=== PATIENT | female | born 1945 | race Caucasian/White ===

== ENCOUNTER 2017-05-16 07:30 | Outpatient (CLI) | payer MEDICARE ==
--- NOTE | 2017-05-16 09:33 | ULT ---
ABDOMINAL ULTRASOUND: History: Previous cholecystectomy. Mid abdominal pain. Comparison: None. Technique: Utilizing a multihertz transducer, sonographic imaging of the abdomen was performed in th e longitudinal and transverse plane. FINDINGS: Head and proximal pancreatic body have a normal echotexture. The rest of the pancreas is obscured. V isualized aorta is unremarkable. IVC is not well demonstrated. Main portal vein is patent. Appropriate direction of flow. Hepatic parenchyma has a normal echotextu re. No hepatic masses or intrahepatic biliary dilatation. Contour of the hepatic margin is maintaine d. Right hepatic lobe measures 15.3 cm. Gallbladder is surgically absent. Common bile duct is 0.4 cm. Kidneys have a normal cortical echotexture. Bilaterally, no hydronephrosis. The right kidney measure s 4.6 x 9.7 x 4.7 cm. Left kidney measures 9.7 x 4.8 x 4.9 cm. Echogenic focus in the midpole cortex may represent a calculus. No obstruction. Spleen measures 9 cm in maximal dimension. IMPRESSION: No acute abnormality in the abdomen. POS: [facility]
--- NOTE | 2017-05-16 10:38 | RAD ---
BARIUM SWALLOW ESOPHOGRAM: History: Choking, dysphagia. Comparison: None. FINDINGS: Single view chest: Crimper Operator chest radiograph demonstrates a normal cardiac silhouette. The pulmonary vessels and hilum are normal. Costophrenic angles are clear. No masses or consolidation. No pneumothorax or osseous abnor malities. Patient was administered effervescence crystals followed by thick barium, thin barium, and a standar d 13 mm tablet. The cervical and thoracic esophagus have an overall normal course and caliber. There is no mucosal a bnormality. A small hiatal hernia is noted, without evidence of reflux during intermittent fluorosco py. The 13 mm barium tablet passed without difficulty. IMPRESSION: 1. No evidence of obstruction. 2. Small hiatal hernia without evidence of reflux during intermittent fluoroscopy. 3. No mucosal abnormality. POS: [facility]
== END 2017-05-16 07:31 | disposition home or self-care (01) ==
LOC: ULT 07:30
PROVIDERS: ATTEND Internal Medicine Gastroenterology
DX: R13.10 Dysphagia, unspecified (principal); R10.84 Generalized abdominal pain; R10.11 Right upper quadrant pain; R09.89 Other specified symptoms and signs involving the circulatory and respiratory systems; K44.9 Diaphragmatic hernia without obstruction or gangrene
CPT/HCPCS: 74220; 76700

== ENCOUNTER 2017-07-20 15:44 | Outpatient (CLI) | payer MEDICARE | END 2017-07-20 15:45 | disposition home or self-care (01) | LOC: BICRAD 15:44 | PROVIDERS: ATTEND Anesthesiology Pain Medicine | DX: M25.551 Pain in right hip (principal); M16.11 Unilateral primary osteoarthritis, right hip ==

== ENCOUNTER 2017-10-17 12:29 | Outpatient (CLI) | payer MEDICARE ==
[2017-10-17 14:12] LABS: Hemoglobin 13.5 g/dL (12.0-16.0); Mean Corpuscular HGB CONC 32.8 g/dL (32.0-36.0); Mean Corpuscular Hemoglobin 31.9 pg (27.0-31.0); Mean Corpuscular Volume 97.2 fl (81.0-99.0); Mean Platelet Volume 7.4 fL (7.4-10.4); Platelet Count 290 thou/uL (130-400); Red Blood Cell (RBC) Count 4.22 mill/uL (4.20-5.40); White Blood Cell (WBC) Count 8.5 thou/uL (4.8-10.8)
[2017-10-17 14:17] LABS: Bilirubin Negative (Negative); Blood, Urine Negative (Negative); Clarity CLEAR (Clear); Glucose, Urine (Dipstick) Negative (Negative); Leukocyte Negative (Negative); Nitrite Negative (Negative); PTT 29.1 SEC (22.9-36.1); Protein, Urine (Dipstick) Negative (Neg-Trace); Prothrombin Time 13.4 SEC (12.0-14.7); Specific Gravity, Urine 1.008 (1.002-1.036); Urobilinogen 0.2 mg/dL (0.2-1.0); pH, Urine 6.5 (5.0-9.0)
[2017-10-17 14:24] LABS: Bacteria/HPF Rare-Few HPF (None Seen); Hyaline Casts/LPF 0-3 HYALINE CAST LPF (0-3 Hyaline); RBC/HPF 0-3 HPF (0-3); Squamous Epithelial 0-3 HPF (0-3); WBC/HPF None Seen HPF (0-3)
[2017-10-17 14:41] LABS: Anion Gap 11 mmol/L (10-20); BUN (Urea Nitrogen) 10 mg/dL (9.8-20.1); Calc. Creatinine Clearance 0 mL/min (70-130); Calcium 9.5 mg/dL (7.8-10.44); Carbon Dioxide 26 mmol/L (23-31); Chloride 103 mmol/L (98-107); Estimated GFR-MDRD 75; Glucose 98 mg/dL (80-115); Potassium 3.9 mmol/L (3.5-5.1); Sodium 136 mmol/L (136-145)
== END 2017-10-17 12:30 | disposition home or self-care (01) ==
LOC: LABBT 12:29
PROVIDERS: ATTEND Orthopaedic Surgery
DX: Z01.818 Encounter for other preprocedural examination (principal); M16.11 Unilateral primary osteoarthritis, right hip
CPT/HCPCS: 80048; 81001; 85027; 85610; 85730; 87081; 87086; 93005; 93010

== ENCOUNTER 2017-10-18 09:00 | Inpatient (IN) | payer MEDICARE ==
--- NOTE | 2017-10-26 10:01 | HP ---
HISTORY OF PRESENT ILLNESS: The patient is a 71-year-old female who has a 6 month history of progres sive pain in the right hip without injury. She describes groin pain which is worse with activities a nd has persisted despite rest, restriction of activities, anti-inflammatory medications, and a cortis one injection in her hip. The pain is now interfering with day-to-day activities. PAST MEDICAL HISTORY: The patient has had left total hip replacement in 01/2014 with good results. She has had chronic back problems and is followed by Dr. Nieves and has received injections. Th is had no effect on her hip pains. The patient has a history of thyroid replacement, previous hyster ectomy, and breast lumpectomy. CURRENT MEDICATIONS: Include thyroid, Etodolac, multivitamins, tramadol. ALLERGIES: She is allergic to GABAPENTIN and DAPTOMYCIN. FAMILY HISTORY/SOCIAL HISTORY/REVIEW OF SYSTEMS: Essentially unremarkable. Patient currently lives by herself. She has nonworking family members that can help her in the immediate postoperative recov merced. PHYSICAL EXAMINATION: GENERAL: Reveals a healthy female. HEENT: Unremarkable. NECK: Supple. CHEST: Clear. HEART: Regular rate and rhythm. ABDOMEN: Soft. PELVIC/RECTAL/BREAST: Exams are deferred. EXTREMITIES: Pertinent findings related to her hip. There is tenderness in the anterior and posteri or hip. There is a right antalgic gait. There is limitation of her hip motion and groin pain with i nternal rotation of the hip which reproduces her pain. Her leg lengths are equal. Neurovascular exa m is intact. LABORATORY AND X-RAY FINDINGS: X-rays of the hip reveal moderately severe DJD of the right hip. IMPRESSION: 1. Degenerative joint disease, right hip. 2. Status post left total hip replacement. 3. History of thyroid replacement. PLAN: Right total hip replacement. The nature of the surgery, length of recovery, and potential com plications such as infection, loss of motion, incomplete relief, leg length discrepancy, possible tra nsfusion, neurovascular injury and need for revision have been discussed in detail. The patient will probably require care home or inpatient rehabilitation following surgery due to the fact that she lives by herself and does not have adequate support at home in the immediate postoperative period .
[2017-10-30] MEDS ORDERED: CEFAZOLIN/Water 2 GM/20 ML SYRINGE ONE (07:23)
[2017-10-30] MEDS ORDERED: Midazolam HCl 2 mg/2 ml Vial ONE (07:52)
[2017-10-30] MEDS ORDERED: Fentanyl 100 MCG/2 ML VIAL ONE ×2 (07:52→11:28)
[2017-10-30] MEDS ORDERED: Scopolamine 1.5 mg/72 hour Patch ONE (08:09)
[2017-10-30] MEDS ORDERED: Ondansetron HCl/PF 4 MG/2 ML Vial ONE ×2 (08:09→16:18)
[2017-10-30] MEDS ORDERED: traMADol HCl 50 MG TAB PO PRN ×2 (08:30→13:01)
[2017-10-30] MEDS ORDERED: Naloxone HCl 0.4 mg/ml Vial IV PRN (08:30)
[2017-10-30] MEDS ORDERED: diphenhydrAMINE 50 MG/ML VIAL IVP PRN (08:30)
[2017-10-30] MEDS ORDERED: Promethazine HCl 25 MG SUPP PR PRN (08:30)
[2017-10-30] MEDS ORDERED: Ondansetron HCl/PF 4 MG/2 ML Vial IVP PRN ×3 (08:30→13:01)
[2017-10-30] MEDS ORDERED: Naloxone HCl 0.4 mg/ml Vial IVP PRN (08:30)
[2017-10-30] MEDS ORDERED: Promethazine HCl 25 MG/ML VIAL IM PRN ×2 (08:30→10:44)
[2017-10-30] MEDS ORDERED: fentaNYL Citrate/PF 1,250 MCG, Bupivacaine 25 ML in Sodium Chloride 0.9% 250 ML 200 ML EPIDURAL SCH (08:30)
[2017-10-30] MEDS ORDERED: Zolpidem Tartrate 5 MG TAB PO PRN ×2 (08:30→13:01)
[2017-10-30] MEDS ORDERED: Hydrocerin (Eucerin) Cream 120 gm Jar TOP PRN (08:30)
[2017-10-30] MEDS ORDERED: Bupivacaine 0.25% 10 ML VIAL EPIDURAL PRN (08:30)
[2017-10-30] MEDS ORDERED: diphenhydrAMINE 50 MG/ML VIAL IM PRN (08:30)
[2017-10-30] MEDS ORDERED: Ropivacaine 0.2% HCl/PF 20 ML ONE (09:22)
[2017-10-30] MEDS ORDERED: Promethazine HCl 25 MG/ML VIAL SLOW IVP PRN ×2 (10:44→13:01)
[2017-10-30] MEDS ORDERED: Tranexamic Acid 1,000 MG in Sodium Chloride 0.9% 100 ML IVPB SCH ×2 (11:15→13:01)
--- NOTE | 2017-10-30 11:29 | OP ---
DATE OF PROCEDURE: 10/30/2017 PREOPERATIVE DIAGNOSIS: End-stage bicompartmental osteoarthritis, right hip. POSTOPERATIVE DIAGNOSIS: End-stage bicompartmental osteoarthritis, right hip. PROCEDURE: Press-Fit right total hip arthroplasty. SURGEON: Trent Mccallum M.D. RISK MANAGEMENT INTERN: To Taylor PA-C. ANESTHESIA: General via endotracheal tube. Augmented with indwelling epidural. COMPONENTS USED: [employer], Trident PSL, cluster acetabular 52 mm shell with an Accolade p ressfit 3.5 hip stem, 124 mm degree neck, 10 degree polyethylene fixed bearing insert, and V40 36 mm standard offset metallic femoral head. ESTIMATED BLOOD LOSS: 200 mL. FINDINGS: End-stage severe degenerative bicompartmental disease, bone on bone arthrosis, periarticul ar osteophyte formation, large serous effusion, hypertrophic synovium. DRAINS: None. SPECIMENS: None. COMPLICATIONS: None. COUNTS: Correct. INDICATIONS FOR SURGERY: Jailene is a 71-year-old white female who had progressive right hip, groin and thigh pain upon standing and walking for the last 5-7 years. She has failed conservative managem ent and elected to proceed with total hip arthroplasty as a definitive treatment of her pain. PROCEDURE IN DETAIL: After informed consent was obtained in the preoperative holding area, the patie nt was taken to the operative suite where general anesthesia was induced. The patient was then posit ioned in the lateral decubitus position. The hip was then prepped and draped in usual sterile fashio n. The patient received preoperative antibiotics. Prior to incision, time-out was called and all me mbers of the surgical team agreed upon site, surgeon, and patient. After this, a longitudinal incisi on was made directly over the trochanter, noted by palpation extending 2 fingerbreadths above and bel ow the trochanter. The deeper subcutaneous layer was undermined with Bovie electrocautery. The ilio tibial band was encountered and incised sharply and the plane below this was developed bluntly. A ashli retractor was placed to hold this opened. The lateral aspect of the trochanter and the abduct or muscles were encountered and then reflected anteriorly off the trochanter using Bovie electrocaute ry. Once this was completed, the anterior capsule was then encountered and identified and copious ca psulotomy was carried out, exposing the femoral neck and head. Dislocation maneuver was then performe d and an in situ provisional neck cut was then made using the oscillating saw. Attention was then tu rned to acetabular preparation and sequential reaming was carried out up to the appropriate diameter and a trial was then malleted into place with good firm resistance and no pullout. The permanent taras tabular shell was then malleted squarely into place, as was the appropriate liner. Once completed, t he wound was copiously irrigated and attention was then turned to femoral preparation. Flexion and ex ternal rotation was performed of the exposed thigh and femoral elevators were then placed at the prox imal aspect of the wound. Canal finder was used to establish the length of the canal and sequential reaming was carried out, followed by broaching. Once the appropriate stability was established with the trial broaches with both flexion, extension and rotational stability, we did trial with neutral a nd 2 mm offset incremental necks. Once the appropriate size was decided upon, with good stability no nora with flexion, extension, internal and external rotation and shuck being negative, we removed the femoral trial broach and malletted into place the permanent prosthesis with good firm fit, which was also stable to rotation. Again, the hip felt very stable to flexion, extension, internal and externa l rotation. Leg lengths appeared near anatomic clinically and we were quite happy with prosthesis pl acement. Copious irrigation was then carried out through the entirety of the wound. Primary closure of the abductors was accomplished with interrupted #2 Vicryl [id number] stitches and the IT ban d was then closed with interrupted #2 Vicryl, oversewn with a #2 running barbed Quill stitch. Subcut aneous fascia was closed with running barbed Quill stitch and a subcuticular Monocryl barbed Quill st itch was used for skin closure and augmented with skin cement. A sterile dressing was applied. The p rocedure was terminated without any complication. All counts were correct. The patient was awakened in the operative suite and taken to the recovery room in stable condition.
[2017-10-30] MEDS ORDERED: Promethazine HCl 25 MG/ML VIAL ONE (11:37)
[2017-10-30] MEDS ORDERED: Ketorolac Tromethamine 30 MG/ML VIAL IVP SCH (12:00)
[2017-10-30] MEDS ORDERED: Ferrous Gluconate 324 MG TAB PO SCH ×2 (13:01→13:30)
[2017-10-30] MEDS ORDERED: Thyroid 60 MG TAB PO SCH ×2 (13:01→13:30)
[2017-10-30] MEDS ORDERED: diphenhydrAMINE 25 MG CAP PO PRN (13:01)
[2017-10-30] MEDS ORDERED: Acetaminophen 325 MG TAB PO PRN (13:01)
[2017-10-30] MEDS ORDERED: Ondansetron ODT 4 MG TAB PO PRN (13:01)
[2017-10-30] MEDS ORDERED: Aspirin 325 MG TAB PO SCH ×2 (13:01→21:00)
[2017-10-30] MEDS ORDERED: Fentanyl 100 MCG/2 ML VIAL SLOW IVP PRN ×2 (13:01)
[2017-10-30] MEDS ORDERED: Senokot S 8.6-50 MG TAB PO SCH ×2 (13:01→13:30)
[2017-10-30] MEDS ORDERED: Multivitamin W/ Minerals 1 TAB PO SCH ×2 (13:01→13:30)
[2017-10-30] MEDS ORDERED: HYDROcodone/Acetaminophen 10/325 mg Tablet PO PRN ×2 (13:01)
[2017-10-30] MEDS: Acetaminophen 1,000 MG in Premix Bag 1 BAG IVPB SCH ×3 (14:05→23:13)
[2017-10-30] MEDS: Sodium Chloride 0.9% 1,000 ML IV SCH ×2 (14:06→22:24)
[2017-10-30] MEDS: Ketorolac Tromethamine 30 MG/ML VIAL IVP SCH ×2 (14:31→22:18)
[2017-10-30] MEDS: CEFAZOLIN/Water 2 GM/20 ML SYRINGE SLOW IVP SCH ×2 (14:32→22:19)
--- NOTE | 2017-10-30 14:35 | RAD ---
RIGHT HIP TWO VIEWS: HISTORY: Postop total hip. COMPARISON: None. FINDINGS: Satisfactory appearance of right total hip arthroplasty. Expected postoperative gas and edema. No h ardware complication. IMPRESSION: Satisfactory appearance of right total hip arthroplasty. POS: [facility]
[2017-10-30] MEDS ORDERED: Dexamethasone 20 MG/5 ML VIAL ONE (16:18)
[2017-10-30] MEDS ORDERED: Lidocaine 1% PF 5 ML VIAL ONE (16:18)
[2017-10-30] MEDS ORDERED: Glycopyrrolate 0.2 MG/ML 5 ML SYRINGE ONE (16:18)
[2017-10-30] MEDS ORDERED: Propofol 200 MG/20 ML VIAL ONE (16:18)
[2017-10-30] MEDS ORDERED: Vancomycin HCl 1 GM in Premix Bag 1 BAG IVPB SCH (20:00)
[2017-10-30] MEDS: Ferrous Gluconate 324 MG TAB PO SCH (20:22)
[2017-10-30] MEDS: Escitalopram Oxalate 20 mg Tablet PO SCH (20:22)
[2017-10-30] MEDS: Senokot S 8.6-50 MG TAB PO SCH (20:23)
--- NOTE | 2017-10-30 20:24 | PDOC.PN ---
- Subjective Encounter Start Date: 10/30/17 Encounter Start Time: 17:00 - Objective MAR Reviewed: Yes Vital Signs & Weight: Vital Signs (12 hours) Temp Pulse Pulse Pulse Resp BP BP 10/30/17 15:30 63 87 111/63 131/71 10/30/17 13:01 97.8 F 77 16 10/30/17 12:50 97.8 F 77 16 BP Pulse Ox 10/30/17 15:30 10/30/17 13:01 146/71 H 93 L 10/30/17 12:50 146/71 H 93 L Weight Weight 162 lb 5.714 oz Result Diagrams: 10/31/17 05:21 EKG Reviewed by me: Yes (SR) Phys Exam - Physical Examination Constitutional: NAD Respiratory: no wheezing, no rhonchi Cardiovascular: RRR, no rub Gastrointestinal: soft, non-tender, positive bowel sounds Musculoskeletal: no edema Dx/Plan - Plan DVT proph w/SCDs IMPRESSION: 1. Hypothyroidism 2. Depression - No suicidal ideation 3. CKD 2 4. Dyslipidemia - diet controlled PLAN: * Cont Armor thyroid * Cont Citalopram * Cont PT * Full code * DPOA - self/family * Will follow. Thank you for this consultation. Review of Systems - Review of Systems Respiratory: negative: Cough, Dry, Shortness of Breath, Hemoptysis, SOB with Excertion, Pleuritic Pain, Sputum, Wheezing Cardiovascular: negative: chest pain, palpitations, orthopnea, paroxysmal nocturnal dyspnea, edema, light headedness Gastrointestinal: negative: Nausea, Vomiting, Abdominal Pain, Diarrhea, Constipation, Melena, Hematochezia - Medications/Allergies Allergies/Adverse Reactions: Allergies Allergy/AdvReac Type Severity Reaction Status Date / Time demeclocycline Allergy Verified 10/17/17 13:13 [From Declomycin] hydrocodone Allergy Verified 10/17/17 13:13 prednisone Allergy Verified 10/17/17 13:13 Medications: Current Medications Acetaminophen (Tylenol) 650 mg PO Q4H PRN PRN Reason: [place]/ T > 101F; Mild Pain (1-3) Aspirin (Aspirin Chewable) 81 mg PO BID [facility] Last Admin: 10/30/17 20:22 Dose: 81 mg Cefazolin Sodium (Ancef) 2 gm SLOW IVP 1500,2300 [facility] Stop: 10/30/17 23:01 Last Admin: 10/30/17 14:32 Dose: 2 gm Diphenhydramine HCl (Benadryl) 25 mg PO Q3H PRN PRN Reason: Itching Diphenhydramine HCl (Benadryl) 25 mg IM Q3H PRN PRN Reason: Itching Diphenhydramine HCl (Benadryl) 25 mg IVP Q3H PRN PRN Reason: Itching Diphenhydramine HCl (Benadryl) 25 mg PO Q6H PRN PRN Reason: Itching Emollient Cream (Hydrocerin Cream) 0 gm TOP PRN PRN PRN Reason: Itching Escitalopram Oxalate (Lexapro) 20 mg PO HS [facility] Last Admin: 10/30/17 20:22 Dose: 20 mg Ferrous Gluconate (Fergon) 324 mg PO BID [facility] Last Admin: 10/30/17 20:22 Dose: 324 mg Fentanyl Citrate 1,250 mcg/Bupivacaine HCl 25 ml/ Sodium Chloride 250 mls @ 0 mls/hr EPIDURAL INF [facility] PRN Reason: As Directed Acetaminophen 1,000 mg/ Device 100 mls @ 400 mls/hr IVPB Q6HR [facility] Stop: 11/02/17 12:01 Last Admin: 10/30/17 17:28 Dose: 100 mls Sodium Chloride (Normal Saline 0.9%) 1,000 mls @ 100 mls/hr IV .Q10H [facility] Last Admin: 10/30/17 14:06 Dose: 1,000 mls Vancomycin HCl 1 gm/ Device 200 mls @ 200 mls/hr IVPB 2000 [facility] Stop: 10/30/17 20:59 Last Admin: 10/30/17 20:21 Dose: 200 mls Iron/Minerals/Multivitamins (Theragran M) 1 tab PO DAILY [facility] Ketorolac Tromethamine (Toradol) 15 mg IVP Q8HR [facility] Stop: 11/01/17 14:01 Last Admin: 10/30/17 14:31 Dose: 15 mg Naloxone HCl (Narcan) 0.2 mg IV Q5MIN PRN PRN Reason: RR <=8 OR OBTUNDED/UNAROUSABLE Naloxone HCl (Narcan) 0.1 mg IVP Q15MIN PRN PRN Reason: URINARY RETENTION Ondansetron HCl (Zofran) 4 mg IVP Q6H PRN PRN Reason: Nausea/Vomiting Promethazine HCl (Phenergan) 12.5 mg IM Q4H PRN PRN Reason: Nausea Promethazine HCl (Phenergan Suppository) 25 mg [place] Q4H PRN PRN Reason: Nausea/Vomiting Promethazine HCl (Phenergan) 12.5 mg SLOW IVP Q4H PRN PRN Reason: Nausea/Vomiting Senna/Docusate Sodium (Senokot S) 2 tab PO BID [facility] Last Admin: 10/30/17 20:23 Dose: 2 tab Sodium Chloride (Flush - Normal Saline) 10 ml IVF PRN PRN PRN Reason: Saline Flush Thyroid ([place] Thyroid) 60 mg PO QAM [facility] Tramadol HCl (Ultram) 50 mg PO Q6H PRN PRN Reason: Mild Pain 1-3 Tramadol HCl (Ultram) 100 mg PO Q6H PRN PRN Reason: Moderate Pain 4-6 Zolpidem Tartrate (Ambien) 5 mg PO HSPRN PRN PRN Reason: Insomnia
[2017-10-31] MEDS: diphenhydrAMINE 25 MG CAP PO PRN ×2 (04:22→21:27)
[2017-10-31] MEDS: Ketorolac Tromethamine 30 MG/ML VIAL IVP SCH ×3 (05:45→21:18)
[2017-10-31] MEDS: Acetaminophen 1,000 MG in Premix Bag 1 BAG IVPB SCH ×3 (05:45→16:06)
[2017-10-31 06:12] LABS: Hemoglobin 10.6 g/dL (12.0-16.0); Mean Corpuscular HGB CONC 33.5 g/dL (32.0-36.0); Mean Corpuscular Hemoglobin 31.9 pg (27.0-31.0); Mean Corpuscular Volume 95.1 fl (81.0-99.0); Mean Platelet Volume 7.2 fL (7.4-10.4); Platelet Count 229 thou/uL (130-400); RBC Distribution Width 11.8 % (11.5-14.5); Red Blood Cell (RBC) Count 3.34 mill/uL (4.20-5.40); White Blood Cell (WBC) Count 11.2 thou/uL (4.8-10.8)
[2017-10-31] MEDS: traMADol HCl 50 MG TAB PO PRN (08:51)
[2017-10-31] MEDS: Senokot S 8.6-50 MG TAB PO SCH ×2 (08:53→21:16)
[2017-10-31] MEDS: Multivitamin W/ Minerals 1 TAB PO SCH (08:54)
[2017-10-31] MEDS: Ferrous Gluconate 324 MG TAB PO SCH ×2 (08:54→21:16)
[2017-10-31] MEDS ORDERED: Thyroid 60 MG TAB PO SCH (09:00)
[2017-10-31] MEDS ORDERED: Polyethylene Glycol 3350 17 GM Packet PO PRN (09:10)
[2017-10-31] MEDS: Sodium Chloride 0.9% 1,000 ML IV SCH ×2 (09:47→13:04)
[2017-10-31] MEDS ORDERED: Acetaminophen/Codeine 30-300mg Tablet PO PRN (11:42)
[2017-10-31 12:09] VITALS: BMI 26.1
[2017-10-31] MEDS: Acetaminophen/Codeine 30-300mg Tablet PO PRN ×2 (12:10→21:16)
[2017-10-31] MEDS: Escitalopram Oxalate 20 mg Tablet PO SCH (21:16)
--- NOTE | 2017-10-31 21:46 | PDOC.PN ---
- Subjective Encounter Start Date: 10/31/17 Encounter Start Time: 19:30 Patient seen and examined. No new complaints. No overnight events - Objective MAR Reviewed: Yes Vital Signs & Weight: Vital Signs (12 hours) Temp Pulse Resp BP Pulse Ox 10/31/17 15:46 98.3 F 75 16 125/66 96 10/31/17 13:31 98.4 F 78 20 128/67 97 Weight Admit Weight 162 lb Weight 162 lb I&O: 10/30/17 10/31/17 11/01/17 06:59 06:59 06:59 Intake Total 2653.0 810.5 Output Total 2200 1600 Balance 453.0 -789.5 Result Diagrams: 10/31/17 05:21 Phys Exam - Physical Examination Constitutional: NAD Neck: no JVD Musculoskeletal: no edema Neurological: moves all 4 limbs Dx/Plan - Plan DVT proph w/SCDs IMPRESSION: 1. Depression 2. Hypothyroidism 3. CKD 2 4. Dyslipidemia - diet controlled PLAN: * Cont Armor thyroid & Citalopram * Cont therapy * DC to inpt Rehab in AM Review of Systems - Review of Systems Respiratory: negative: Cough, Dry, Shortness of Breath, Hemoptysis, SOB with Excertion, Pleuritic Pain, Sputum, Wheezing Cardiovascular: negative: chest pain, palpitations, orthopnea, paroxysmal nocturnal dyspnea, edema, light headedness - Medications/Allergies Allergies/Adverse Reactions: Allergies Allergy/AdvReac Type Severity Reaction Status Date / Time demeclocycline Allergy Verified 10/17/17 13:13 [From Declomycin] hydrocodone Allergy Verified 10/17/17 13:13 prednisone Allergy Verified 10/17/17 13:13 Medications: Current Medications Acetaminophen (Tylenol) 650 mg PO Q4H PRN PRN Reason: [place]N/ T > 101F; Mild Pain (1-3) Acetaminophen/Codeine Phosphate (Tylenol #3) 1 tab PO Q4H PRN PRN Reason: Moderate Pain (4-6) Acetaminophen/Codeine Phosphate (Tylenol #3) 2 tab PO Q4H PRN PRN Reason: Pain Last Admin: 10/31/17 21:16 Dose: 2 tab Aspirin (Aspirin Chewable) 81 mg PO BID [facility] Last Admin: 10/31/17 21:16 Dose: 81 mg Diphenhydramine HCl (Benadryl) 25 mg PO Q3H PRN PRN Reason: Itching Last Admin: 10/31/17 21:27 Dose: 25 mg Diphenhydramine HCl (Benadryl) 25 mg IM Q3H PRN PRN Reason: Itching Diphenhydramine HCl (Benadryl) 25 mg IVP Q3H PRN PRN Reason: Itching Emollient Cream (Hydrocerin Cream) 0 gm TOP PRN PRN PRN Reason: Itching Escitalopram Oxalate (Lexapro) 20 mg PO HS [facility] Last Admin: 10/31/17 21:16 Dose: 20 mg Ferrous Gluconate (Fergon) 324 mg PO BID [facility] Last Admin: 10/31/17 21:16 Dose: 324 mg Fentanyl Citrate 1,250 mcg/Bupivacaine HCl 25 ml/ Sodium Chloride 250 mls @ 0 mls/hr EPIDURAL INF [facility] PRN Reason: As Directed Acetaminophen 1,000 mg/ Device 100 mls @ 400 mls/hr IVPB Q6HR [facility] Stop: 11/02/17 12:01 Last Admin: 10/31/17 16:06 Dose: Not Given Sodium Chloride (Normal Saline 0.9%) 1,000 mls @ 100 mls/hr IV .Q10H [facility] Last Admin: 10/31/17 13:04 Dose: Not Given Iron/Minerals/Multivitamins (Theragran M) 1 tab PO DAILY [facility] Last Admin: 10/31/17 08:54 Dose: 1 tab Ketorolac Tromethamine (Toradol) 15 mg IVP Q8HR [facility] Stop: 11/01/17 14:01 Last Admin: 10/31/17 21:18 Dose: 15 mg Naloxone HCl (Narcan) 0.2 mg IV Q5MIN PRN PRN Reason: RR <=8 OR OBTUNDED/UNAROUSABLE Naloxone HCl (Narcan) 0.1 mg IVP Q15MIN PRN PRN Reason: URINARY RETENTION Ondansetron HCl (Zofran) 4 mg IVP Q6H PRN PRN Reason: Nausea/Vomiting Polyethylene Glycol (Miralax) 17 gm PO DAILY PRN PRN Reason: Constipation Promethazine HCl (Phenergan) 12.5 mg IM Q4H PRN PRN Reason: Nausea Promethazine HCl (Phenergan Suppository) [address] Q4H PRN PRN Reason: Nausea/Vomiting Promethazine HCl (Phenergan) 12.5 mg SLOW IVP Q4H PRN PRN Reason: Nausea/Vomiting Senna/Docusate Sodium (Senokot S) 2 tab PO BID [facility] Last Admin: 10/31/17 21:16 Dose: 2 tab Sodium Chloride (Flush - Normal Saline) 10 ml IVF PRN PRN PRN Reason: Saline Flush Last Admin: 10/31/17 21:18 Dose: 10 ml Thyroid ([place] Thyroid) 60 mg PO 0600 [facility] Tramadol HCl (Ultram) 50 mg PO Q6H PRN PRN Reason: Mild Pain 1-3 Tramadol HCl (Ultram) 100 mg PO Q6H PRN PRN Reason: Moderate Pain 4-6 Last Admin: 10/31/17 08:51 Dose: 100 mg Zolpidem Tartrate (Ambien) 5 mg PO HSPRN PRN PRN Reason: Insomnia
[2017-11-01] MEDS: Acetaminophen 1,000 MG in Premix Bag 1 BAG IVPB SCH ×4 (00:52→23:31)
[2017-11-01] MEDS: diphenhydrAMINE 25 MG CAP PO PRN ×2 (00:53→06:27)
[2017-11-01] MEDS: Sodium Chloride 0.9% 1,000 ML IV SCH ×2 (04:11→20:40)
[2017-11-01] MEDS: Ketorolac Tromethamine 30 MG/ML VIAL IVP SCH ×2 (05:29→15:33)
[2017-11-01] MEDS: Thyroid 60 MG TAB PO SCH (05:30)
[2017-11-01] MEDS: Acetaminophen/Codeine 30-300mg Tablet PO PRN ×3 (08:55→20:47)
[2017-11-01] MEDS: Multivitamin W/ Minerals 1 TAB PO SCH (08:56)
[2017-11-01] MEDS: Senokot S 8.6-50 MG TAB PO SCH ×2 (08:56→20:40)
[2017-11-01] MEDS: Ferrous Gluconate 324 MG TAB PO SCH ×2 (08:57→20:39)
[2017-11-01] MEDS: traMADol HCl 50 MG TAB PO PRN (15:42)
[2017-11-01] MEDS ORDERED: Fentanyl 100 MCG/2 ML VIAL SLOW IVP SCH (16:15)
[2017-11-01] MEDS: Escitalopram Oxalate 20 mg Tablet PO SCH (20:40)
[2017-11-02] MEDS: Sodium Chloride 0.9% 1,000 ML IV SCH ×2 (00:07→14:48)
[2017-11-02] MEDS: Acetaminophen/Codeine 30-300mg Tablet PO PRN ×4 (00:35→14:37)
[2017-11-02] MEDS: Acetaminophen 1,000 MG in Premix Bag 1 BAG IVPB SCH ×2 (05:21→14:49)
[2017-11-02] MEDS: Thyroid 60 MG TAB PO SCH (05:24)
[2017-11-02] MEDS: Multivitamin W/ Minerals 1 TAB PO SCH (08:04)
[2017-11-02] MEDS: Senokot S 8.6-50 MG TAB PO SCH (08:04)
[2017-11-02] MEDS: Ferrous Gluconate 324 MG TAB PO SCH (08:04)
[2017-11-02] MEDS: traMADol HCl 50 MG TAB PO PRN (12:50)
[2017-11-02 15:39] VITALS: BP 132/69; TEMP 98.1
== END 2017-11-02 17:13 | DRG 470 ==
LOC: SURG A 10-30 06:41 → SJJU 10-30 12:29 → T4-A 10-30 16:50 → SJJU 10-30 16:54
PROVIDERS: ADMIT Orthopaedic Surgery; ATTEND Orthopaedic Surgery
PROC: 0SR901A Replacement of Right Hip Joint with Metal Synthetic Substitute, Uncemented, Open Approach (ICD-10-PCS; principal; 2017-10-30)
DX: M16.11 Unilateral primary osteoarthritis, right hip (principal); Z96.642 Presence of left artificial hip joint; E78.5 Hyperlipidemia, unspecified; F32.9 Major depressive disorder, single episode, unspecified
CPT/HCPCS: 36415; 85027; C1776; G8978-GP-CJ; G8979-GP-CI; G8987-GO-CK; G8988-GO-CI; J0131; J1100; J1885; J2001; J2250; J2405; J2550; J2704; J2795; J3010; J3370; J3490; J7050

== ENCOUNTER 2017-10-25 14:45 | Outpatient (CLI) | payer MEDICARE | END 2017-10-25 14:46 | disposition home or self-care (01) | LOC: LABBT 14:45 | PROVIDERS: ATTEND Orthopaedic Surgery | DX: Z01.812 Encounter for preprocedural laboratory examination (principal); M16.11 Unilateral primary osteoarthritis, right hip | CPT/HCPCS: 86850; 86900; 86901 ==

== ENCOUNTER 2018-08-09 13:41 | Outpatient (CLI) | payer MEDICARE ==
--- NOTE | 2018-08-09 16:38 | BD ---
BONE DENSITOMETRY USING DEXA: Date: 08/09/18 HISTORY: Postmenopausal screening for osteoporosis. Patient had both hips replaced. FINDINGS: Lumbar Spine: BMD (g/cm2) L1 1.078 T-Score: 0.8 Z-Score: 2.7 L2 1.168 T-Score: 1.3 Z-Score: 3.4 L3 1.041 T-Score: -0.4 Z-Score: 1.8 L4 1.034 T-Score: -0.2 Z-Score: 2.0 L1-L4 1.073 T-Score: 0.2 Z-Score: 2.4 Left Forearm: UD 0.380 T-Score: -1.1 Z-Score: 0.5 Mid 0.474 T-Score: -2.4 Z-Score: -0.3 1/3 0.563 T-Score: -2.2 Z-Score: 0.0 Total 0.459 T-Score: -2.2 Z-Score: -0.2 IMPRESSION: Osteopenia. POS: OFF
== END 2018-08-09 13:42 | disposition home or self-care (01) ==
LOC: BICMAMMO 13:41
PROVIDERS: ATTEND Obstetrics & Gynecology
DX: Z12.31 Encounter for screening mammogram for malignant neoplasm of breast (principal); Z13.820 Encounter for screening for osteoporosis; M85.832 Other specified disorders of bone density and structure, left forearm; Z80.3 Family history of malignant neoplasm of breast
CPT/HCPCS: 77063; 77067; 77080

== ENCOUNTER 2018-12-09 15:45 | Emergency (ER) | payer MEDICARE ==
[2018-12-09 16:22] LABS: #Basophils 0.1 thou/uL (0.0-0.2); #Eosinphils 0.1 thou/uL (0.0-0.7); #Lymphocytes 2.1 thou/uL (1.20-3.40); #Monocytes 0.6 thou/uL (0.11-0.59); #Neutrophils 4.3 thou/uL (1.40-6.50); %Basophils 0.7 % (0.0-1.0); %Eosinophils 1.2 % (0.0-10.0); %Lymphocytes 30.1 % (21.0-51.0); Hemoglobin 13.2 g/dL (12.0-16.0); Mean Corpuscular HGB CONC 34.2 g/dL (32.0-36.0); Mean Corpuscular Hemoglobin 33.1 pg (27.0-31.0); Mean Corpuscular Volume 96.7 fL (78.0-98.0); Mean Platelet Volume 7.5 fL (7.4-10.4); Platelet Count 233 thou/uL (130-400); RBC Distribution Width 11.3 % (11.5-14.5); Red Blood Cell (RBC) Count 3.98 mill/uL (4.20-5.40); White Blood Cell (WBC) Count 7.1 thou/uL (4.8-10.8)
[2018-12-09 16:41] LABS: ALT (SGPT) 32 U/L (8-55); AST (SGOT) 59 U/L (5-34); Albumin 4.1 g/dL (3.4-4.8); Alkaline Phosphatase 61 U/L (40-150); Anion Gap 8 mmol/L (10-20); BUN (Urea Nitrogen) 10 mg/dL (9.8-20.1); Bilirubin, Total 0.5 mg/dL (0.2-1.2); Calc. Creatinine Clearance 0 mL/min (70-130); Calcium 8.8 mg/dL (7.8-10.44); Carbon Dioxide 26 mmol/L (23-31); Chloride 100 mmol/L (98-107); Estimated GFR-MDRD 69; Globulin 2.1 g/dL (2.4-3.5); Glucose 101 mg/dL (83-110); Lipase 36 U/L (8-78); Potassium 3.9 mmol/L (3.5-5.1); Protein, Total 6.2 g/dL (6.0-8.3); Sodium 130 mmol/L (136-145)
[2018-12-09] MEDS ORDERED: Lidocaine Viscous Sol 2% 15 ml UD Cup ONE (17:24)
[2018-12-09] MEDS ORDERED: Pantoprazole 40 MG VIAL ONE (17:24)
--- NOTE | 2018-12-15 15:52 | EKG ---
Test Reason : Blood Pressure : / mmHG Vent. Rate : 058 BPM Atrial Rate : 057 BPM P-R Int : 000 ms QRS Dur : 076 ms QT Int : 412 ms P-R-T Axes : 000 013 038 degrees QTc Int : 404 ms Sinus rhythm Normal ECG Confirmed by ALYSSA ENGLAND ([id number]), assistant film editor CHRISSIE ZAPATA ([id number]) on 12/15/2018 3:52:32 PM Referred By: Confirmed By:ALYSSA ENGLAND
== END 2018-12-09 18:03 | disposition home or self-care (01) ==
LOC: ERS 15:45
DX: R10.13 Epigastric pain (principal)
CPT/HCPCS: 36415; 80053; 83690; 84484; 85025; 93005; 96374; C9113

== ENCOUNTER 2019-03-06 10:10 | Outpatient (CLI) | payer MEDICARE ==
[2019-03-06] MEDS ORDERED: Gadobenate Dimeglumine 529 MG/1 ML (20ML VIAL) ONE (10:26)
--- NOTE | 2019-03-06 12:55 | MRI ---
MRI ABDOMEN WITH AND WITHOUT IV CONTRAST MRCP: 03/06/19 HISTORY: Abdominal pain, epigastric pain. FINDINGS: The patient is post cholecystectomy. The common duct measures 6 mm in diameter. No hepatic mass or a bnormal biliary ductal dilatation is seen. The spleen, pancreas and adrenal glands are normal. There are cysts in the kidneys on both sides. No free air, free fluid or lymphadenopathy seen. No abnormal postcontrast enhancement is noted. There is no evidence of aneurysmal dilatation of the abdominal ao rta. The bone marrow signal is normal. IMPRESSION: 1. Status post cholecystectomy without evidence of biliary obstruction. 2. Bilateral renal cysts. POS: [facility]
== END 2019-03-06 10:11 | disposition home or self-care (01) ==
LOC: BICMRI 10:10
PROVIDERS: ATTEND Internal Medicine Gastroenterology
DX: R10.13 Epigastric pain (principal); R11.0 Nausea; N28.1 Cyst of kidney, acquired; Z90.49 Acquired absence of other specified parts of digestive tract
CPT/HCPCS: 74183; 82565; A9577

== ENCOUNTER 2019-05-03 08:40 | Outpatient (CLI) | payer MEDICARE ==
--- NOTE | 2019-05-03 08:55 | RAD ---
2 views of the chest: 05/03/2019 COMPARISON: None HISTORY: Cough, dyspnea on exertion FINDINGS: There is mild diffuse increased linear interstitial density. No pneumothorax or pleural flu id. No focal consolidation or alveolar edema. There is mid thoracic spine and upper lumbar spine disc space narrowing with anterior osteophyte formation. IMPRESSION: Mild increased linear interstitial density with no focal consolidation or alveolar edema.
== END 2019-05-03 08:41 | disposition home or self-care (01) ==
LOC: BICRAD 08:40
PROVIDERS: ATTEND Family Medicine
DX: R06.00 Dyspnea, unspecified (principal); R05 Cough; J98.4 Other disorders of lung
CPT/HCPCS: 36415; 71046; 80053; 80061; 82306; 83880; 84439; 84443; 85025; 86803

== ENCOUNTER 2019-12-16 11:23 | Outpatient (CLI) | payer MEDICARE ==
[~2019-12-16 11:23] MED LIST: Magnevist 469MG/ML 20 ML VIAL ONE
--- NOTE | 2019-12-16 12:39 | MRI ---
MRI brain with and without contrast: DATE: 12/16/2019 HISTORY: 74-year-old female with meningioma and headache. TECHNIQUE: Multiplanar, multisequence MRI of the brain obtained pre and post IV injection of gadolinium based co ntrast agent. FINDINGS: There is no obstructive hydrocephalus. There is no midline shift or any other evidence of mass effect . There is no extra-axial fluid collection. There are mild chronic ischemic white matter changes due to microvascular atherosclerosis. There is otherwise no major intra-axial signal abnormality, abn ormal enhancement, mass, recent hemorrhage, or restricted diffusion. There is a small old lacunar infarction in the left external capsule, which was not present on the prior study. There is a well-ci rcumscribed strongly enhancing extra-axial mass measuring extremity 0.8 x 0.6 x 0.7 cm at the lateral aspect of the right upper cranial cavity. There is no adjacent vasogenic edema, and this has not changed. IMPRESSION: 1) mild chronic ischemic white matter changes. 2) small right supratentorial meningioma. 3) small old lacunar infarction in the left external capsule, which occurred sometime after the previ ous MRI of 04/05/2016. 4) no acute or aggressive intracranial findings.
== END 2019-12-16 11:24 | disposition home or self-care (01) ==
LOC: MRI 11:23
PROVIDERS: ATTEND Family Medicine
DX: D32.9 Benign neoplasm of meninges, unspecified (principal); R51 Headache
CPT/HCPCS: 70553; 82565; A9579

== ENCOUNTER 2020-01-21 13:12 | Outpatient (CLI) | payer MEDICARE ==
--- NOTE | 2020-01-21 15:13 | MRI ---
CERVICAL SPINE MRI WITHOUT IV CONTRAST: HISTORY: Cervical radiculopathy, neck pain for years. FINDINGS: Multiplanar, multisequence MRI examination of the cervical spine is performed. The visualized lower brain appears unremarkable. Visualized soft tissue neck appears unremarkable. There are generalized disk-osteophytosis and facet arthrosis changes with disk desiccation changes. C2-C3 disk: Mild disk-osteophytosis with mild right foraminal stenosis. C3-C4 disk: Mild thinning of the lateral recesses and mild foraminal stenosis slightly more marked o n the right side. C4-C5 disk: Very mild disk-osteophyte changes and slight thinning of the lateral recesses and forami na bilaterally. C5-C6 disk: Mild disk-osteophytosis with some central thecal sac impression and mild lateral recess and foraminal stenosis bilaterally. C6-C7 disk: Focal left posterolateral disk-osteophyte with left lateral recess and fairly marked lef t foraminal stenosis. C7-T1 disk: Unremarkable. IMPRESSION: Multilevel variable severity mostly lateral recess and foraminal stenosis. POS: [facility]
--- NOTE | 2020-01-21 15:27 | MRI ---
LUMBAR SPINE MRI WITHOUT IV CONTRAST: HISTORY: Lumbosacral spondylosis with radiculopathy. COMPARISON: 04/08/2014. FINDINGS: Type I end plate changes are noted at L1-L2 with some very minimal type I end plate changes at L2-L3. Conus medullaris region is unremarkable terminating at L1. Small T2 hyperintense, T1 hypointense nod ular circumscribed foci in both kidneys, evidence for small cysts, although they are incompletely franklyn racterized. Generalized disk desiccation changes and ligament and facet hypertrophic changes. T12-L1 disk: No significant stenosis. L1-L2 disk: Diffuse disk-osteophyte with mild to moderate central canal and moderate bilateral reces s stenosis and mild bilateral foraminal stenosis. L2-L3 disk: Mild central canal and lateral recess stenosis and moderate bilateral foraminal stenosis . L3-L4 disk: Mild foraminal stenosis. L4-L5 disk: Bilateral recess stenosis. L5-S1 disk: Unremarkable. IMPRESSION: Multilevel variable severity mostly lateral recess and foraminal stenosis as above. Minimal type I e nd plate changes. Other findings as above. POS: [facility]
== END 2020-01-21 13:13 | disposition home or self-care (01) ==
LOC: BICMRI 13:12
PROVIDERS: ATTEND Physician Assistant
DX: M47.27 Other spondylosis with radiculopathy, lumbosacral region (principal); M48.061 Spinal stenosis, lumbar region without neurogenic claudication; M25.78 Osteophyte, vertebrae; M48.02 Spinal stenosis, cervical region
CPT/HCPCS: 72141; 72148

== ENCOUNTER 2020-07-23 12:22 | Outpatient (CLI) | payer MEDICARE ==
--- NOTE | 2020-07-23 13:11 | RAD ---
EXAM: 4 views of the right wrist HISTORY: Right wrist pain after fall COMPARISON: None FINDINGS: 4 views of the right wrist shows no evidence of acute fracture or dislocation. No soft tiss ue swelling is seen. There is moderate degenerative change at the first CMC joint. IMPRESSION: No evidence of acute osseous abnormality.
--- NOTE | 2020-07-23 13:18 | RAD ---
EXAM: XR Hip Rt 2-3 View PROVIDED CLINICAL HISTORY: Pain status post fall COMPARISON: 10/30/2017 FINDINGS: There is no evidence for fracture or other acute osseous abnormality. Alignment appears anatomic. Pos toperative changes of right total hip arthroplasty are demonstrated, without evidence for hardware loosening or migration. IMPRESSION: No evidence for an acute osseous abnormality. If there is persistent clinical concern, conservative m anagement and follow-up imaging advised.
--- NOTE | 2020-07-23 13:18 | RAD ---
EXAM: XR Knee Rt 2 View PROVIDED CLINICAL HISTORY: Pain status post fall FINDINGS: There is no evidence for fracture or other acute osseous abnormality. Alignment appears anatomic. Danielle nt spaces appear preserved. IMPRESSION: No evidence for an acute osseous abnormality. If there is persistent clinical concern, conservative m anagement and follow-up imaging advised.
--- NOTE | 2020-07-23 13:19 | RAD ---
EXAM: XR Ribs Rt>=2 view STANDARD PROVIDED CLINICAL HISTORY: Pain status post injury COMPARISON: None FINDINGS: No evidence for displaced right-sided rib fracture, pleural fluid or pneumothorax. IMPRESSION: As above.
== END 2020-07-23 12:23 | disposition home or self-care (01) ==
LOC: BICRAD 12:22
PROVIDERS: ATTEND Family Medicine
DX: S69.91XA Unspecified injury of right wrist, hand and finger(s), initial encounter (principal); M25.551 Pain in right hip; R07.81 Pleurodynia; W19.XXXA Unspecified fall, initial encounter

== ENCOUNTER 2020-08-14 10:04 | Outpatient (CLI) | payer MEDICARE ==
--- NOTE | 2020-08-14 11:31 | RAD ---
Exam:Right wrist 4 views HISTORY: Fall. Pain. Injury. Pain on the distal radius and first carpal bones. COMPARISON: 07/23/2020 FINDINGS: There are degenerative changes involving the first carpometacarpal articulation. Normal-nathaniel earing trapezium and trapezoid bones are not appreciated. The capitate bone, hamate bone and proximal carpal row appear to be unremarkable. Radiocarpal joint spaces preserved. No evidence of an acute fracture. IMPRESSION: 1. No definite acute fracture. 2. Presumed degenerative changes involving the first carpometacarpal articulation. Limited option the trapezium and trapezoid bones. Correlate for point tenderness in this region. Further evaluation with a wrist MRI may be beneficial.
== END 2020-08-14 10:05 | disposition home or self-care (01) ==
LOC: BICRAD 10:04
PROVIDERS: ATTEND Family Medicine
DX: S69.91XA Unspecified injury of right wrist, hand and finger(s), initial encounter (principal); M18.11 Unilateral primary osteoarthritis of first carpometacarpal joint, right hand; W19.XXXA Unspecified fall, initial encounter

== ENCOUNTER 2020-08-27 12:16 | Outpatient (CLI) | payer MEDICARE ==
--- NOTE | 2020-08-27 13:35 | MRI ---
MR of the right wrist without contrast HISTORY: Right wrist injury after a fall 3 weeks ago with pain in the distal radiocarpal joint. COMPARISON: Prior right wrist radiograph dated August 14, 2020. FINDINGS: There is prominent motion artifact that limits image detail on the exam. As seen in comparison radiog raph is advanced osteoarthritic change at the first CMC and STT joint with a prominent periarticular ganglion seen along the volar and ulnar aspect of the first MCP joint measuring approxi mately 1.6 cm. There is a 5 mm intra-articular body seen adjacent to the thumb metacarpal base. There are nonspecific subchondral cyst-like abnormalities involving the wrist carpus and base of the first CMC likely degenerative in nature. The visualized flexor and extensor tendons appear intact. There is suspicion for a large central perforation involving the TFC, best seen on image 6 of series 10, measuring approximately 5 mm. The peripheral and radioulnar attachments of the TFC appear intact. The ECU tendon appears intact. The median nerve and ulnar neural vasculature appears within n ormal limits. Visualized aspects of the scapholunate and lunotriquetral ligaments appear intact. No overt extrinsic ligamentous injury is grossly evident. There is slight dorsal malalignment of the tayler ate which may be positional in nature. IMPRESSION: 1. Limitations in exam due to motion artifact. 2. Suspected large central perforation of the TFC. 3. Advanced first CMC and STT osteoarthrosis with a periarticular ganglion protruding off the palmar and ulnar aspect of the first MTP joint with associated intra-articular body. Transcribed Date/Time: 08/27/2020 1:42 PM
== END 2020-08-27 12:17 | disposition home or self-care (01) ==
LOC: BICMRI 12:16
PROVIDERS: ATTEND Family Medicine
DX: M18.11 Unilateral primary osteoarthritis of first carpometacarpal joint, right hand (principal)

== ENCOUNTER 2020-11-14 10:42 | Emergency (ER) | payer MEDICARE ==
[2020-11-14] MEDS ORDERED: Ondansetron ODT 4 MG TAB ONE (11:04)
[2020-11-14] MEDS ORDERED: Boostrix 0.5 ML (Tdap) VIAL ONE (11:04)
[2020-11-14] MEDS ORDERED: Lidocaine 1% (PF) 30 ML VIAL ONE (11:13)
[2020-11-14] MEDS ORDERED: Lidocaine 1% w/Epinephrine 1:100K 20 ML VIAL ONE (11:14)
[2020-11-14] MEDS ORDERED: traMADol HCl 50 MG TAB ONE (11:48)
== END 2020-11-14 12:02 | disposition home or self-care (01) ==
LOC: ERS 10:42
DX: S01.81XA Laceration without foreign body of other part of head, initial encounter (principal); Z23 Encounter for immunization; W01.0XXA Fall on same level from slipping, tripping and stumbling without subsequent striking against object, initial encounter
CPT/HCPCS: 12014; 90471; 90715; J2001; Q0162

== ENCOUNTER 2020-12-16 13:15 | Outpatient (CLI) | payer MEDICARE ==
[~2020-12-16 13:15] MED LIST changes: +Iopamidol 370 76% 100 ML VIAL ONE; -Magnevist 469MG/ML 20 ML VIAL ONE
== END 2020-12-16 13:16 | disposition home or self-care (01) ==
LOC: BICCT 13:15
PROVIDERS: ATTEND Internal Medicine Gastroenterology
DX: K58.9 Irritable bowel syndrome, unspecified (principal); R10.11 Right upper quadrant pain; R11.2 Nausea with vomiting, unspecified; F41.9 Anxiety disorder, unspecified; N28.1 Cyst of kidney, acquired; K57.30 Diverticulosis of large intestine without perforation or abscess without bleeding
CPT/HCPCS: 74178; 82565; Q9967

== ENCOUNTER 2021-10-06 14:02 | Outpatient (CLI) | payer MEDICARE | END 2021-10-06 14:03 | disposition home or self-care (01) | LOC: BICRAD 14:02 | PROVIDERS: ATTEND Physician Assistant Medical | DX: R07.1 Chest pain on breathing (principal); R10.11 Right upper quadrant pain | CPT/HCPCS: 71046 ==

== ENCOUNTER 2022-07-28 11:00 | Outpatient (CLI) | payer MEDICARE | END 2022-07-28 11:01 | disposition home or self-care (01) | LOC: MRI 11:00 | PROVIDERS: ATTEND Nurse Practitioner Family | DX: D32.0 Benign neoplasm of cerebral meninges (principal); F51.04 Psychophysiologic insomnia; M85.89 Other specified disorders of bone density and structure, multiple sites; E55.9 Vitamin D deficiency, unspecified; E78.5 Hyperlipidemia, unspecified; E03.9 Hypothyroidism, unspecified; R53.82 Chronic fatigue, unspecified; R51.9 Headache, unspecified; Z87.820 Personal history of traumatic brain injury | CPT/HCPCS: 70553; 82565 ==

== ENCOUNTER 2022-08-29 12:10 | Emergency (ER) | payer MEDICARE ==
[2022-08-29 13:03] LABS: #Eosinphils 0.1 thou/uL (0.0-0.7); #Lymphocytes 0.4 thou/uL (1.20-3.40); #Monocytes 0.4 thou/uL (0.11-0.59); #Neutrophils 8.8 thou/uL (1.40-6.50); %Eosinophils 0.9 % (0.0-10.0); %Lymphocytes 4.2 % (21.0-51.0); %Monocytes 4.4 % (0.0-10.0); %Neutrophils 90.5 % (42.0-75.0); Hemoglobin 14.8 g/dL (12.0-16.0); Mean Corpuscular HGB CONC 33.9 g/dL (32.0-36.0); Mean Corpuscular Hemoglobin 32.5 pg (27.0-31.0); Mean Corpuscular Volume 95.6 fl (78.0-98.0); Mean Platelet Volume 7.1 fL (7.4-10.4); Platelet Count 276 10x3/uL (130-400); RBC Distribution Width 11.7 % (11.5-14.5); Red Blood Cell (RBC) Count 4.55 mill/uL (4.20-5.40); White Blood Cell (WBC) Count 9.8 10x3/uL (4.8-10.8)
[2022-08-29 13:23] LABS: ALT (SGPT) 32 U/L (8-55); AST (SGOT) 33 U/L (5-34); Albumin 4.2 g/dL (3.4-4.8); Alkaline Phosphatase 63 U/L (40-110); Anion Gap 14 mmol/L (10-20); BUN (Urea Nitrogen) 16 mg/dL (9.8-20.1); Bilirubin, Total 0.8 mg/dL (0.2-1.2); Calc. Creatinine Clearance 0 mL/min (70-130); Calcium 9.4 mg/dL (7.8-10.44); Carbon Dioxide 21 mmol/L (23-31); Chloride 107 mmol/L (98-107); Estimated GFR 76; Globulin 2.8 g/dL (2.4-3.5); Glucose 116 mg/dL (83-110); Lipase 23 U/L (8-78); Potassium 4.3 mmol/L (3.5-5.1); Sodium 138 mmol/L (136-145)
[2022-08-29 13:59] LABS: Bilirubin Negative (Negative); Blood, Urine Negative (Negative); Clarity Clear (Clear); Glucose, Urine (Dipstick) Normal (Negative); Ketone, Urine Negative (Negative); Leukocyte Negative Leu/uL (Negative); Nitrite Negative (Negative); Protein, Urine (Dipstick) 10 mg/dL (Neg-Trace); Specific Gravity, Urine 1.022 (1.002-1.036); Urobilinogen Normal mg/dL (Less than 2)
[2022-08-29] MEDS ORDERED: Ondansetron PF 4 MG/2 ML Vial ONE ×2 (14:19→16:17)
[2022-08-29] MEDS ORDERED: Ketorolac Tromethamine 30 MG/ML VIAL ONE (17:28)
[2022-08-29] MEDS ORDERED: Promethazine HCl 25 MG in Sodium Chloride 0.9% 50 ML IVPB SCH (17:45)
== END 2022-08-29 18:33 | disposition home or self-care (01) ==
LOC: ERS 12:10
DX: R11.2 Nausea with vomiting, unspecified (principal)
CPT/HCPCS: 36415; 70450; 80053; 81003; 83690; 84484; 85025; 85652; 86140; 93005; 96374; 96375; 96376; J1885; J2405; J2550

== ENCOUNTER 2022-09-05 12:23 | Outpatient (CLI) | payer MEDICARE | END 2022-09-05 12:24 | disposition home or self-care (01) | LOC: BICCT 12:23 | PROVIDERS: ATTEND Nurse Practitioner Family | DX: R10.32 Left lower quadrant pain (principal); R11.0 Nausea; Q61.02 Congenital multiple renal cysts; I71.40 Abdominal aortic aneurysm, without rupture, unspecified | CPT/HCPCS: 36415; 74177; 80053; 81001; 83690; 85025 ==

== ENCOUNTER 2023-03-28 12:31 | Outpatient (CLI) | payer MEDICARE ==
[~2023-03-28 12:31] MED LIST changes: -Iopamidol 370 76% 100 ML VIAL ONE; +Magnevist 469MG/ML 20 ML VIAL ONE
== END 2023-03-28 12:32 | disposition home or self-care (01) ==
LOC: BICMRI 12:31
PROVIDERS: ATTEND Psychiatry & Neurology Neurology
DX: R51.9 Headache, unspecified (principal); D32.0 Benign neoplasm of cerebral meninges
CPT/HCPCS: 70553

== ENCOUNTER 2023-05-18 11:55 | Outpatient (CLI) | payer MEDICARE | END 2023-05-18 11:56 | disposition home or self-care (01) | LOC: RAD 11:55 | PROVIDERS: ATTEND Internal Medicine Cardiovascular Disease | DX: R07.9 Chest pain, unspecified (principal) | CPT/HCPCS: 36415; 71046; 84484 ==

== ENCOUNTER 2023-05-25 12:09 | Day surgery (SDC) | payer MEDICARE ==
[2023-05-25] MEDS ORDERED: Midazolam HCl 2 mg/2 ml Vial ONE (12:15)
[2023-05-25] MEDS ORDERED: fentaNYL 50 mcg/mL 1 mL Vial ONE (12:15)
[2023-05-25] MEDS ORDERED: Nitroglycerin 50 MG/250 ML BOT 250 ML ONE (12:16)
[2023-05-25] MEDS ORDERED: Verapamil 5 MG/2 ML VIAL ONE (12:16)
[2023-05-25] MEDS ORDERED: Lidocaine 1% (PF) 30 ML VIAL ONE (12:16)
[2023-05-25] MEDS ORDERED: Heparin 10,000 UNITS/ 10 ML VIAL ONE (12:16)
[2023-05-25 13:13] LABS: #Eosinphils 0.1 thou/uL (0.0-0.7); #Monocytes 0.6 thou/uL (0.11-0.59); #Neutrophils 5.2 thou/uL (1.40-6.50); %Basophils 0.5 % (0.0-1.0); %Eosinophils 1.3 % (0.0-10.0); %Lymphocytes 22.4 % (21.0-51.0); %Monocytes 7.4 % (0.0-10.0); Hematocrit 38.9 % (36.0-47.0); Hemoglobin 13.1 g/dL (12.0-16.0); Mean Corpuscular HGB CONC 33.7 g/dL (32.0-36.0); Mean Corpuscular Hemoglobin 32.5 pg (27.0-31.0); Mean Corpuscular Volume 96.5 fl (78.0-98.0); Platelet Count 261 10x3/uL (130-400); RBC Distribution Width 12.1 % (11.5-14.5); Red Blood Cell (RBC) Count 4.03 mill/uL (4.20-5.40); White Blood Cell (WBC) Count 7.7 10x3/uL (4.8-10.8)
[2023-05-25 13:36] LABS: Anion Gap 12 mmol/L (10-20); BUN (Urea Nitrogen) 13 mg/dL (9.8-20.1); Calc. Creatinine Clearance 0 mL/min (70-130); Calcium 9.3 mg/dL (7.8-10.44); Carbon Dioxide 25 mmol/L (23-31); Chloride 101 mmol/L (98-107); Estimated GFR 68; Glucose 97 mg/dL (83-110); Potassium 4.6 mmol/L (3.5-5.1); Sodium 133 mmol/L (136-145)
[2023-05-25] MEDS ORDERED: Iopamidol 370 76% 100 ML VIAL ONE (13:49)
[2023-05-25] MEDS ORDERED: Adenosine 6 MG/2 ML VIAL ONE (15:03)
== END 2023-05-25 17:40 | disposition home or self-care (01) ==
LOC: SDC 12:09
PROVIDERS: ATTEND Internal Medicine Cardiovascular Disease
PROC: 4A023N7 Measurement of Cardiac Sampling and Pressure, Left Heart, Percutaneous Approach (ICD-10-PCS; principal; 2023-05-25)
PROC: B216YZZ Fluoroscopy of Right and Left Heart using Other Contrast (ICD-10-PCS; 2023-05-25)
DX: R07.9 Chest pain, unspecified (principal); R06.09 Other forms of dyspnea; I25.10 Atherosclerotic heart disease of native coronary artery without angina pectoris; Z95.5 Presence of coronary angioplasty implant and graft; R53.83 Other fatigue; E66.9 Obesity, unspecified; Z96.649 Presence of unspecified artificial hip joint; Z90.710 Acquired absence of both cervix and uterus; Z90.49 Acquired absence of other specified parts of digestive tract; Z98.890 Other specified postprocedural states; Z88.1 Allergy status to other antibiotic agents; Z79.82 Long term (current) use of aspirin; Z79.899 Other long term (current) drug therapy
CPT/HCPCS: 80048; 85025; 93454; 93571; C1769 ×2; C1887; C1894; J3010; 99152; 99153; J0153; J1644; J2001; J2250; Q9967

== ENCOUNTER 2023-08-10 14:24 | Outpatient (CLI) | payer MEDICARE ==
[2023-08-10] MEDS ORDERED: Magnevist 469MG/ML 20 ML VIAL ONE (14:48)
== END 2023-08-10 14:25 | disposition home or self-care (01) ==
LOC: MRI 14:24
PROVIDERS: ATTEND Nurse Practitioner Family
DX: D32.9 Benign neoplasm of meninges, unspecified (principal)
CPT/HCPCS: 70553; A9579